=== PATIENT | male | born 1940 | race African-American/Black ===

== ENCOUNTER 2019-03-08 12:04 | Inpatient (IN) | payer MEDICARE ==
[~2019-03-08] VITALS: Ht 190.5 cm; Wt 71.7 kg
[2019-03-08 12:47] LABS: BASOPHILS % 0.6 % (0.0-2.0); EOSINOPHILS % 2.9 % (0.0-5.0); HEMATOCRIT. 44.7 % (42.0-52.0); HEMOGLOBIN. 15.1 g/dL (14.0-18.0); LYMPHOCYTES % 33.5 % (20.0-50.0); MEAN CORPUSCULAR HEMOGLOBIN 32.3 pg (28.0-32.0); MEAN CORPUSCULAR VOLUME 95.2 fL (80.0-94.0); MEAN PLATELET VOLUME 6.8 fl (7.4-10.4); MONOCYTES % 11.1 % (2.0-8.0); NEUTROPHILS % 51.9 % (40.0-76.0); PLATELET 226 x1000/uL (130-400); RED BLOOD CELL COUNT 4.69 mill/uL (4.7-6.1); RED CELL DISTRIBUTION WIDTH 13.6 % (11.6-14.6)
[2019-03-08 12:52] LABS: CHLORIDE 103 mEq/L (98-107)
[2019-03-08 12:56] LABS: ETHANOL BLOOD < 10 mg/dL
[2019-03-08 12:56] LABS: CLARITY URINE CLEAR (CLEAR); COLOR URINE YELLOW (YELLOW); KETONES URINE NEGATIVE (NEGATIVE); LEUKOCYTE ESTERASE URINE NEGATIVE (NEGATIVE); NITRITE URINE NEGATIVE (NEGATIVE); OCCULT BLOOD URINE NEGATIVE (NEGATIVE); PROTEIN URINE NEGATIVE (NEGATIVE); SPECIFIC GRAVITY URINE 1.009 (1.005-1.030); UROBILINOGEN URINE 0.2 E.U./dL (0.2-1.0)
[2019-03-08 13:15] LABS: *AMPHETAMINES SCREEN URINE NEGATIVE (NEGATIVE); *BARBITURATES SCREEN URINE NEGATIVE (NEGATIVE); *BENZODIAZEPINES SCREEN URINE NEGATIVE (NEGATIVE); *COCAINE SCREEN URINE NEGATIVE (NEGATIVE); CANNABINOID URINE SCREEN NEGATIVE (NEGATIVE); METHADONE URINE SCREEN NEGATIVE (NEGATIVE)
[2019-03-08 13:16] LABS: OPIATES URINE SCREEN NEGATIVE (NEGATIVE); PHENCYCLIDINE URINE SCREEN NEGATIVE (NEGATIVE)
[2019-03-08 13:26] LABS: PARTIAL THROMBOPLASTIN TIME 33.2 sec (23.4-31.0); PROTHROMBIN TIME 10.1 sec (9.6-11.0)
[2019-03-08] MEDS ORDERED: ASPIRIN 325MG EC TABLET PO ONE (13:45)
[2019-03-08] MEDS ORDERED: ACETAMINOPHEN 325MG TABLET PO ONE (14:00)
[2019-03-08] MEDS ORDERED: METOCLOPRAMIDE HCL 10MG/2ML VIAL IV ONE (14:00)
[2019-03-08] MEDS ORDERED: NITROGLYCERIN 0.4MG TABLET SL SL PRN (14:15)
[2019-03-08] MEDS ORDERED: IPRATROPIUM/ALBUTEROL 0.5-3(2.5)MG/3ML NEB NEB PRN (14:15)
[2019-03-08] MEDS ORDERED: ONDANSETRON HCL 4MG/2ML INJ IV PRN (14:15)
[2019-03-08] MEDS ORDERED: ACETAMINOPHEN 325MG TABLET PO PRN (14:15)
[2019-03-08] MEDS ORDERED: CLONIDINE 0.1MG TABLET PO PRN (14:15)
[2019-03-08] MEDS ORDERED: GUAIFENESIN 200MG/10ML SUGAR FREE UDC PO PRN (14:15)
[2019-03-08] MEDS ORDERED: DOCUSATE SODIUM 100MG CAPSULE PO PRN (14:15)
[2019-03-08] MEDS ORDERED: MAGNESIUM/ALUMINUM HYDROXIDE/SIMETHICONE 30ML UDC PO PRN (14:15)
[2019-03-08] MEDS ORDERED: ENOXAPARIN 40MG/0.4ML SYR SUBCUT SCH ×2 (15:00→23:50)
[2019-03-08] MEDS ORDERED: IOHEXOL-350 100 ML BOTTLE ONE (16:04)
[2019-03-08 17:40] VITALS: BP 159/85
[2019-03-08 18:00] VITALS: BP 159/85
[2019-03-08 20:00] VITALS: BP 152/81
[2019-03-08] MEDS: ATORVASTATIN CALCIUM 20MG TABLET PO SCH (20:27)
[2019-03-08] MEDS: FAMOTIDINE 20MG TABLET PO SCH (20:27)
[2019-03-08] MEDS ORDERED: NA PHOS,M-B/NA PHOS,DI-BA ENEMA 118ML PR PRN (21:00)
[2019-03-08] MEDS ORDERED: ZOLPIDEM TARTRATE 5MG TABLET PO PRN (21:00)
[2019-03-08 22:00] VITALS: BP 123/69
[2019-03-09] VITALS (12 sets, daily range): BP systolic 104–158; BP diastolic 66–89
[2019-03-09 00:51] LABS: CREATINE KINASE 81 IU/L (39-308)
[2019-03-09 01:06] LABS: CREATINE KINASE MB FRACTION 1.3 ng/mL (0.5-3.6)
[2019-03-09] MEDS: FAMOTIDINE 20MG TABLET PO SCH ×2 (08:06→20:40)
[2019-03-09] MEDS ORDERED: CLOPIDOGREL 75MG TABLET PO SCH (09:00)
[2019-03-09 09:13] LABS: CREATINE KINASE 72 IU/L (39-308)
[2019-03-09 09:14] LABS: CREATINE KINASE MB FRACTION 1.1 ng/mL (0.5-3.6)
[2019-03-09] MEDS: ENOXAPARIN 80MG/0.8ML SYR SUBCUT SCH ×2 (11:09→23:02)
[2019-03-09 15:14] LABS: T4 FREE 1.05 ng/dL (0.76-1.46)
[2019-03-09 15:37] LABS: FOLIC ACID (FOLATE) SERUM 12.9 ng/mL (>5.38)
[2019-03-09] MEDS ORDERED: WARFARIN SODIUM 5MG TABLET PO NR (18:00)
[2019-03-09] MEDS: ATORVASTATIN CALCIUM 20MG TABLET PO SCH (20:39)
[2019-03-10] VITALS: BP 128/72
[2019-03-10 02:00] VITALS: BP 122/64
[2019-03-10 04:00] VITALS: BP 119/77
[2019-03-10 06:00] VITALS: BP 136/104
[2019-03-10 06:56] LABS: PROTHROMBIN TIME 10.7 sec (9.6-11.0)
[2019-03-10 08:00] VITALS: BP 147/23
[2019-03-10] MEDS: FAMOTIDINE 20MG TABLET PO SCH (09:14)
[2019-03-10 10:00] VITALS: BP 171/101
[2019-03-10] MEDS: ENOXAPARIN 80MG/0.8ML SYR SUBCUT SCH (11:06)
== END 2019-03-10 16:59 | disposition left against medical advice (07) | DRG 65 ==
LOC: ER 12:04 → SUPCPDRO 13:59 → EDBEDREQ 14:37 → ENRESERV 14:57 → 5EST 17:28
PROVIDERS: ADMIT Internal Medicine; ATTEND Internal Medicine
DX: I63.532 Cerebral infarction due to unspecified occlusion or stenosis of left posterior cerebral artery (principal); E87.1 Hypo-osmolality and hyponatremia; R41.4 Neurologic neglect syndrome; D72.819 Decreased white blood cell count, unspecified; E78.00 Pure hypercholesterolemia, unspecified; E78.5 Hyperlipidemia, unspecified; H53.461 Homonymous bilateral field defects, right side; H54.7 Unspecified visual loss; I10 Essential (primary) hypertension; I48.0 Paroxysmal atrial fibrillation; I71.2 Thoracic aortic aneurysm, without rupture; I71.4 Abdominal aortic aneurysm, without rupture; R47.01 Aphasia; R47.1 Dysarthria and anarthria; R26.9 Unspecified abnormalities of gait and mobility
CPT/HCPCS: 36415; 70496; 70498; 70551; 71045; 80061; 80305; 80320; 81003; 82550; 82553; 82607; 82746; 82962; 83036; 84439; 84443; 84481; 84484; 86850; 86900; 92610; 93005; 93306; 97162; 97166; 99291; J1650; Q9967; G0480

== ENCOUNTER 2020-11-07 13:02 | Emergency (ER) | payer MEDICARE ==
[~2020-11-07] VITALS: Ht 205.7 cm; Wt 80.0 kg
[2020-11-07] MEDS ORDERED: SODIUM CHLORIDE 0.9% 1,000 ML IV ONE (13:45)
[2020-11-07 14:14] LABS: BASOPHILS % 0.5 % (0.0-2.0); EOSINOPHILS % 2.9 % (0.0-5.0); HEMATOCRIT. 38.6 % (42.0-52.0); HEMOGLOBIN. 13.6 g/dL (14.0-18.0); LYMPHOCYTES % 38.6 % (20.0-50.0); MEAN CORPUSCULAR HEMOGLOBIN 32.7 pg (28.0-32.0); MEAN PLATELET VOLUME 7.3 fl (7.4-10.4); MONOCYTES % 8.7 % (2.0-8.0); NEUTROPHILS % 49.3 % (40.0-76.0); PLATELET 210 x1000/uL (130-400); RED BLOOD CELL COUNT 4.15 mill/uL (4.7-6.1); RED CELL DISTRIBUTION WIDTH 12.8 % (11.6-14.6)
[2020-11-07 14:18] LABS: CHLORIDE 107 mEq/L (98-107)
[2020-11-07 14:21] LABS: PROTHROMBIN TIME 10.8 sec (9.6-11.0)
[2020-11-07 16:15] VITALS: BP 134/81
== END 2020-11-07 16:31 | disposition home or self-care (01) ==
LOC: ER 13:02
DX: R13.10 Dysphagia, unspecified (principal); J44.1 Chronic obstructive pulmonary disease with (acute) exacerbation; I50.9 Heart failure, unspecified; Z86.73 Personal history of transient ischemic attack (TIA), and cerebral infarction without residual deficits
CPT/HCPCS: 36415; 71045; 80053; 83880; 84484; 85025; 85610; 93005; 96360; 99285; J7030

== ENCOUNTER 2021-08-22 16:22 | Inpatient (IN) | payer MEDICARE, OTHER ==
[~2021-08-22] VITALS: Ht 177.8 cm; Wt 68.0 kg
[2021-08-22] MEDS ORDERED: LEVETIRACETAM 500MG PREMIX 100 ML IV ONE (17:00)
[2021-08-22] MEDS ORDERED: SODIUM CHLORIDE 0.9% 1000ML BAG (SEPSIS BOLUS) IV ONE (17:00)
[2021-08-22 17:29] LABS: BASOPHILS % 0.5 % (0.0-2.0); HEMATOCRIT. 40.2 % (42.0-52.0); HEMOGLOBIN. 13.4 g/dL (14.0-18.0); LYMPHOCYTES % 38.6 % (20.0-50.0); MEAN CORPUSCULAR HEMOGLOBIN 30.9 pg (28.0-32.0); MEAN CORPUSCULAR VOLUME 92.9 fL (80.0-94.0); MEAN PLATELET VOLUME 7.8 fl (7.4-10.4); MONOCYTES % 9.1 % (2.0-8.0); NEUTROPHILS % 49.8 % (40.0-76.0); PLATELET 175 x1000/uL (130-400); RED BLOOD CELL COUNT 4.33 mill/uL (4.7-6.1); RED CELL DISTRIBUTION WIDTH 14.5 % (11.6-14.6)
[2021-08-22 17:35] LABS: CHLORIDE 103 mEq/L (98-107)
[2021-08-22 17:40] LABS: ETHANOL BLOOD < 10 mg/dL
[2021-08-22] MEDS ORDERED: AZITHROMYCIN 500MG/250ML 250 ML IV ONE (19:15)
[2021-08-22] MEDS ORDERED: CEFTRIAXONE 1 G PREMIX 50 ML IV ONE (19:15)
[2021-08-22] MEDS ORDERED: CEFTRIAXONE 1 G PREMIX 50 ML IV NR (20:40)
[2021-08-22] MEDS: AZITHROMYCIN 500 MG in DEXT 5% WATER 250 ML IV NR ×2 (21:18→21:19)
[2021-08-22 21:33] LABS: CLARITY URINE CLEAR (CLEAR); COLOR URINE YELLOW (YELLOW); KETONES URINE NEGATIVE (NEGATIVE); LEUKOCYTE ESTERASE URINE NEGATIVE (NEGATIVE); NITRITE URINE NEGATIVE (NEGATIVE); OCCULT BLOOD URINE NEGATIVE (NEGATIVE); PH URINE 5.5 (4.5-8.0); PROTEIN URINE NEGATIVE (NEGATIVE); SPECIFIC GRAVITY URINE 1.011 (1.005-1.030); UROBILINOGEN URINE 0.2 E.U./dL (0.2-1.0)
[2021-08-22 21:45] LABS: *AMPHETAMINES SCREEN URINE NEGATIVE (NEGATIVE); *BARBITURATES SCREEN URINE NEGATIVE (NEGATIVE); *BENZODIAZEPINES SCREEN URINE NEGATIVE (NEGATIVE); *COCAINE SCREEN URINE NEGATIVE (NEGATIVE)
[2021-08-22 21:46] LABS: CANNABINOID URINE SCREEN NEGATIVE (NEGATIVE); METHADONE URINE SCREEN NEGATIVE (NEGATIVE); OPIATES URINE SCREEN NEGATIVE (NEGATIVE); PHENCYCLIDINE URINE SCREEN NEGATIVE (NEGATIVE)
[2021-08-22 23:30] VITALS: BP 117/70
[2021-08-23] MEDS ORDERED: NITROGLYCERIN 0.4MG TABLET SL SL PRN (10:00)
[2021-08-23] MEDS ORDERED: ONDANSETRON HCL 4MG/2ML INJ IV PRN (10:00)
[2021-08-23] MEDS ORDERED: LORAZEPAM 2MG/ML CPJ IV PRN (10:00)
[2021-08-23] MEDS ORDERED: ACETAMINOPHEN 325MG TABLET PO PRN ×2 (10:00)
[2021-08-23] MEDS ORDERED: MAGNESIUM/ALUMINUM HYDROXIDE/SIMETHICONE 30ML UDC PO PRN (10:00)
[2021-08-23] MEDS ORDERED: GUAIFENESIN 200MG/10ML SUGAR FREE UDC PO PRN (10:00)
[2021-08-23] MEDS ORDERED: CLONIDINE 0.1MG TABLET PO PRN (10:00)
[2021-08-23] MEDS ORDERED: ZOLPIDEM TARTRATE 5MG TABLET PO PRN (10:00)
[2021-08-23] MEDS ORDERED: KETOROLAC 15MG/ML VIAL IV PRN (10:00)
[2021-08-23] MEDS ORDERED: IPRATROPIUM/ALBUTEROL 0.5-3(2.5)MG/3ML NEB NEB PRN (10:00)
[2021-08-23] MEDS ORDERED: DOCUSATE SODIUM 100MG CAPSULE PO PRN (10:00)
[2021-08-23] MEDS ORDERED: ENOXAPARIN 40MG/0.4ML SYR SUBCUT SCH (12:00)
[2021-08-23] MEDS ORDERED: SPIRONOLACTONE 25MG TABLET PO SCH (18:00)
[2021-08-23] MEDS ORDERED: CEFTRIAXONE 1 G PREMIX 50 ML IV SCH (20:00)
[2021-08-23] MEDS ORDERED: FAMOTIDINE 20MG TABLET PO SCH (21:00)
[2021-08-23] MEDS ORDERED: ASCORBIC ACID 500 MG TABLET PO SCH (21:00)
[2021-08-23] MEDS ORDERED: AZITHROMYCIN 500 MG in DEXT 5% WATER 250 ML IV SCH (21:30)
[2021-08-24] MEDS ORDERED: CLOPIDOGREL 75MG TABLET PO SCH (09:00)
[2021-08-24] MEDS ORDERED: ZINC SULFATE 220 MG ( 50 ) CAPSULE PO SCH (09:00)
== END 2021-08-23 00:02 | disposition short-term general hospital (02) | DRG 871 ==
LOC: ER 16:33 → MICUSO 19:04
PROVIDERS: ADMIT Internal Medicine; ATTEND Internal Medicine
DX: A41.9 Sepsis, unspecified organism (principal); J18.9 Pneumonia, unspecified organism; R65.21 Severe sepsis with septic shock; I50.43 Acute on chronic combined systolic (congestive) and diastolic (congestive) heart failure; G92.8 Other toxic encephalopathy; J44.0 Chronic obstructive pulmonary disease with (acute) lower respiratory infection; I11.0 Hypertensive heart disease with heart failure; Z86.73 Personal history of transient ischemic attack (TIA), and cerebral infarction without residual deficits
CPT/HCPCS: 36415; 71045; 80053; 80305; 80307; 80320; 80329; 81003; 83605; 83880; 84145; 84484; 85025; 93005; 99291; J0456; J0696; J1953; J7030; J7060; G0480

== ENCOUNTER 2022-02-17 23:57 | Inpatient (IN) | payer MEDICARE, OTHER ==
[~2022-02-17] VITALS: Ht 182.9 cm; Wt 49.0 kg
[2022-02-18] MEDS ORDERED: AZITHROMYCIN 500 MG in DEXT 5% WATER 250 ML IV SCH (00:30)
[2022-02-18] MEDS ORDERED: FUROSEMIDE 40MG/4ML VIAL IVP ONE (00:30)
[2022-02-18] MEDS ORDERED: CEFTRIAXONE 1 G PREMIX 50 ML IV ONE (00:30)
[2022-02-18 01:00] LABS: BASOPHILS % 0.6 % (0.0-2.0); EOSINOPHILS % 0.3 % (0.0-5.0); HEMATOCRIT. 35.2 % (42.0-52.0); HEMOGLOBIN. 11.6 g/dL (14.0-18.0); MEAN CORPUSCULAR HEMOGLOBIN 32.1 pg (28.0-32.0); MEAN CORPUSCULAR VOLUME 97.1 fL (80.0-94.0); MONOCYTES % 8.3 % (2.0-8.0); NEUTROPHILS % 68.8 % (40.0-76.0); PLATELET 86 x1000/uL (130-400); RED BLOOD CELL COUNT 3.63 mill/uL (4.7-6.1)
[2022-02-18 01:08] LABS: CHLORIDE 106 mEq/L (98-107)
[2022-02-18] MEDS ORDERED: ALBUTEROL (0.083%) 2.5MG/3ML NEB HHN STA (01:34)
[2022-02-18] MEDS ORDERED: IPRATROPIUM BROMIDE (0.02%) 0.5MG/2.5ML NEB HHN STA (01:34)
[2022-02-18] MEDS ORDERED: SODIUM CHLORIDE 0.9% 1,000 ML IV ONE (02:00)
[2022-02-18 02:19] LABS: CLARITY URINE CLEAR (CLEAR); COLOR URINE YELLOW (YELLOW); KETONES URINE NEGATIVE (NEGATIVE); LEUKOCYTE ESTERASE URINE NEGATIVE (NEGATIVE); NITRITE URINE NEGATIVE (NEGATIVE); OCCULT BLOOD URINE NEGATIVE (NEGATIVE); PH URINE 6.5 (4.5-8.0); PROTEIN URINE NEGATIVE (NEGATIVE); UROBILINOGEN URINE 0.2 E.U./dL (0.2-1.0)
[2022-02-18 12:00] VITALS: BP 100/66
[2022-02-18 14:42] VITALS: BP 100/66
[2022-02-18 16:00] VITALS: BP 105/76
[2022-02-18] MEDS ORDERED: EMPA25TA MT (16:23)
[2022-02-18] MEDS ORDERED: BISO5TAB13 PO (16:23)
[2022-02-18] MEDS ORDERED: LACT10SO44 PO (16:23)
[2022-02-18] MEDS ORDERED: FURO-152 MT (16:23)
[2022-02-18] MEDS ORDERED: ASPI-1497 MT (16:23)
[2022-02-18] MEDS ORDERED: LIP40 MT (16:23)
[2022-02-18] MEDS ORDERED: ACETAMINOPHEN 650MG/20.3ML UDC PO PRN (18:15)
[2022-02-18] MEDS ORDERED: NALOXONE HCL 0.4MG/ML VIAL IV PRN (20:15)
[2022-02-18] MEDS: MORPHINE SULFATE 2 MG/ML CPJ (NOT FOR IM USE) IV PRN (20:18)
[2022-02-18 20:46] VITALS: BP 125/85
[2022-02-18] MEDS: BUDESONIDE 0.5MG/2ML NEB HHN SCH (21:51)
[2022-02-18] MEDS: IPRATROPIUM/ALBUTEROL 0.5-3(2.5)MG/3ML NEB HHN PRN (21:55)
[2022-02-19] VITALS: BP 127/89
[2022-02-19 04:00] VITALS: BP 98/51
[2022-02-19] MEDS: MORPHINE SULFATE 2 MG/ML CPJ (NOT FOR IM USE) IV PRN (05:51)
[2022-02-19 08:00] VITALS: BP 117/74
[2022-02-19] MEDS: IPRATROPIUM/ALBUTEROL 0.5-3(2.5)MG/3ML NEB HHN PRN ×2 (08:10→21:00)
[2022-02-19] MEDS: BUDESONIDE 0.5MG/2ML NEB HHN SCH (08:10)
[2022-02-19] MEDS ORDERED: ENOXAPARIN 30MG/0.3ML SYR SUBCUT SCH (09:00)
[2022-02-19] MEDS ORDERED: FUROSEMIDE 40MG/4ML VIAL IVP SCH (09:00)
[2022-02-19] MEDS ORDERED: ASPIRIN 81MG TABLET PO SCH (09:00)
[2022-02-19 12:00] VITALS: BP 101/73
[2022-02-19 16:00] VITALS: BP 93/65
[2022-02-19] MEDS: METHYLPREDNISOLONE SOD SUCC 40 MG/ML VIAL IV SCH (17:28)
[2022-02-19] MEDS: TRAMADOL 50MG TABLET PO PRN (17:42)
[2022-02-19 20:00] VITALS: BP 112/68
[2022-02-19 21:50] LABS: HEMATOCRIT. 43.3 % (42.0-52.0); HEMOGLOBIN. 14.3 g/dL (14.0-18.0); MEAN CORPUSCULAR HEMOGLOBIN 31.6 pg (28.0-32.0); MEAN CORPUSCULAR VOLUME 95.4 fL (80.0-94.0); MEAN PLATELET VOLUME 9.6 fl (7.4-10.4); PLATELET 94 x1000/uL (130-400); RED BLOOD CELL COUNT 4.54 mill/uL (4.7-6.1); RED CELL DISTRIBUTION WIDTH 14.6 % (11.6-14.6)
[2022-02-19 21:58] LABS: INR 1.1; PROTHROMBIN TIME 11.4 sec (9.6-11.0)
[2022-02-19 22:06] LABS: CHLORIDE 98 mEq/L (98-107)
[2022-02-19 22:40] LABS: PLATELET ESTIMATE DECREASED
[2022-02-19] MEDS ORDERED: ENOXAPARIN 60MG/0.6ML SYR SUBCUT SCH (23:00)
[2022-02-20] VITALS: BP 119/83
[2022-02-20] MEDS: TRAMADOL 50MG TABLET PO PRN ×2 (03:45→12:09)
[2022-02-20 04:00] VITALS: BP 113/84
[2022-02-20] MEDS ORDERED: ENOXAPARIN 60MG/0.6ML SYR SUBCUT SCH (06:00)
[2022-02-20 08:00] VITALS: BP 114/75
[2022-02-20] MEDS: METHYLPREDNISOLONE SOD SUCC 40 MG/ML VIAL IV SCH (08:27)
[2022-02-20] MEDS ORDERED: FUROSEMIDE 20MG TABLET PO SCH (09:00)
[2022-02-20 12:00] VITALS: BP 114/80
[2022-02-20] MEDS ORDERED: POLYETHYLENE GLYCOL 3350 (17GM) 1 DOSE PACK PO PRN (12:00)
[2022-02-20 14:46] VITALS: BP 150/77
[2022-02-20 16:00] VITALS: BP 135/75
== END 2022-02-20 17:00 | disposition short-term general hospital (02) | DRG 291 ==
LOC: ER 23:57 → EDBEDREQSVC 02-18 01:44 → EDBEDREQTM 02-18 01:44 → EDBEDREQ 02-18 01:44 → EDBEDREQTM 02-18 02:15 → MICUSO 02-18 03:57 → 7WST 02-18 10:46
PROVIDERS: ADMIT Internal Medicine Nephrology; ATTEND Internal Medicine Nephrology
DX: I11.0 Hypertensive heart disease with heart failure (principal); I50.43 Acute on chronic combined systolic (congestive) and diastolic (congestive) heart failure; J96.01 Acute respiratory failure with hypoxia; J44.1 Chronic obstructive pulmonary disease with (acute) exacerbation; I48.92 Unspecified atrial flutter; E44.1 Mild protein-calorie malnutrition; E87.20 Acidosis, unspecified; Z68.1 Body mass index [BMI] 19.9 or less, adult; R47.01 Aphasia; R64 Cachexia; Z20.822 Contact with and (suspected) exposure to COVID-19; I27.20 Pulmonary hypertension, unspecified; E83.51 Hypocalcemia; E87.70 Fluid overload, unspecified; Z86.73 Personal history of transient ischemic attack (TIA), and cerebral infarction without residual deficits; Z99.81 Dependence on supplemental oxygen
CPT/HCPCS: 36415; 71045; 80048; 80053; 81003; 83605; 83880; 84145; 84484; 85025; 87426; 87804; 93005; 93306; 94640; 97162; 99291; J0456; J0696; J1650; J1940; J2270; J2920; J7030; J7060; J7626